=== PATIENT | male | born 1995 | race Caucasian/White ===

== ENCOUNTER 2017-11-07 17:52 | Emergency (ER) | payer OTHER ==
[~2017-11-07] VITALS: Ht 180.3 cm; Wt 54.4 kg
[2017-11-07 18:31] LABS: INFLUENZA A ANTIGEN None Detected (None Detect); INFLUENZA B ANTIGEN None Detected (None Detect)
[2017-11-07] MEDS ORDERED: ZOFRAN ODT4 MG PO (18:41)
[2017-11-07 18:49] VITALS: BP 119/64
== END 2017-11-07 18:50 | disposition home or self-care (01) ==
LOC: M.ERS 17:52
PROVIDERS: Physician Assistant
DX: K52.9 Noninfective gastroenteritis and colitis, unspecified (principal); Z87.891 Personal history of nicotine dependence; Z98.890 Other specified postprocedural states